=== PATIENT | male | born 1945 | race Caucasian/White ===

== ENCOUNTER 2018-01-30 09:16 | Inpatient (IN) | payer OTHER, BC ==
[~2018-01-30] VITALS: Ht 175.3 cm; Wt 73.0 kg
[~2018-01-30 09:16] MED LIST: ADVIL200 MG PO; ALFUZOSIN HCL10 MG PO; AMLODIPINE BESY10 MG PO; ASPIRIN81 M2 PO; ATORVASTATIN CA20 MG PO; FINASTERIDE5 MG PO; METOPROLOL SUCC25 MG PO; NEXIUM40 MG PO
[2018-01-30 16:56] VITALS: BP 149/87
[2018-01-30 20:00] VITALS: BP 149/70
[2018-01-30 23:55] VITALS: BP 129/74
[2018-01-31 04:00] VITALS: BP 139/71
[2018-01-31 05:41] LABS: BASOPHIL (%) 0.9 % (0-1); BASOPHIL COUNT 0.1 K/uL (0-0.1); EOSINOPHIL (%) 0.9 % (0-5); EOSINOPHIL COUNT 0.1 K/uL (0-0.3); HEMATOCRIT 40.9 % (38.0-50.0); HEMOGLOBIN 13.8 G/DL (12.5-16.6); IMMATURE GRANULOCYTE (%) 0.1 % (0.0-0.7); LYMPHOCYTE (%) 15.3 % (15-42); LYMPHOCYTE COUNT 1.3 K/uL (1.0-2.8); MCH 31.1 PG (29.0-34.0); MCHC 33.7 G/DL (30.0-36.0); MCV 92.1 FL (86-99); MONOCYTE (%) 10.2 % (3-12); MONOCYTE COUNT 0.8 K/uL (0-0.8); NEUTROPHIL (%) 72.6 % (45-76); NEUTROPHIL COUNT 5.9 K/uL (1.8-6.4); PLATELET COUNT 242 K/uL (156-360); RED BLOOD COUNT 4.44 M/uL (4.00-5.50); WHITE BLOOD COUNT 8.2 K/uL (4.1-10.2)
[2018-01-31 06:05] LABS: CHLORIDE 105 MEQ/L (99-109); CREATININE 0.9 MG/DL (0.6-1.3); GFR ESTIMATE (CALCULATED) > 59 mL/min/ (58.99-99999); GLUCOSE 95 mg/dL (70-99); POTASSIUM 3.7 MEQ/L (3.7-5.4); SODIUM 141 MEQ/L (136-147); UREA NITROGEN (BUN) 14 mg/dL (9-23)
[2018-01-31 06:44] VITALS: BP 139/87
[2018-01-31] MEDS ORDERED: BRILINTA90 MG PO (13:20)
[2018-01-31] MEDS ORDERED: ATORVASTATIN CA40 MG PO (13:21)
[2018-01-31] MEDS ORDERED: NITROSTAT0.4 MG SL (13:21)
== END 2018-01-31 13:58 | disposition home or self-care (01) | DRG 247 ==
LOC: CATH 09:16 → ENRESERV 13:00 → 4EAST 16:53
PROVIDERS: Internal Medicine Interventional Cardiology
DX: I25.10 Atherosclerotic heart disease of native coronary artery without angina pectoris (principal); I10 Essential (primary) hypertension; E78.5 Hyperlipidemia, unspecified
CPT/HCPCS: 36415; 80048; 85025; 85347; 85610; 85730; 93005; C1725; C1769; C1874; C1887; J0153; J1644; J2250; J2405; J3010